=== PATIENT | female | born 1965 | race Caucasian/White ===

== ENCOUNTER 2018-06-29 06:01 | Day surgery (SDC) | payer OTHER ==
[~2018-06-29 06:01] MED LIST: CEFAZOLIN 2 GM/50 ML (PMX) 50 ML IVPB
[2018-06-29] MEDS: SOD CHLORIDE 0.9% 1,000 ML IV (06:54)
[2018-06-29] MEDS ORDERED: METOCLOPRAMIDE 10 MG INJ (07:00)
[2018-06-29] MEDS ORDERED: DEXAMETHASONE 4 MG/ML 1 ML INJ (07:00)
[2018-06-29] MEDS ORDERED: CEFAZOLIN 1 GM INJ (07:00)
[2018-06-29] MEDS ORDERED: FENTAnyl 50 MCG/ML VIAL (07:21)
[2018-06-29] MEDS ORDERED: MIDAZOLAM 1 MG/ML 2 ML INJ (07:22)
[2018-06-29] MEDS ORDERED: PROPOFOL 20 ML (07:23)
[2018-06-29] MEDS ORDERED: ONDANSETRON 4 MG INJ (07:23)
[2018-06-29] MEDS ORDERED: LIDOCAINE 2% (SDV) 5 ML INJ (07:24)
[2018-06-29] MEDS ORDERED: HYDROmorphONE 1 MG/5 ML IV SYRINGE IV (08:00)
[2018-06-29] MEDS ORDERED: DIPHENHYDRAMINE 50 MG INJ IV (08:00)
[2018-06-29] MEDS ORDERED: FENTAnyl 50 MCG/ML VIAL IV ×2 (08:00)
[2018-06-29] MEDS ORDERED: MEPERIDINE 25 MG INJ IV (08:00)
[2018-06-29] MEDS ORDERED: KETOROLAC 30 MG INJ IV (08:00)
[2018-06-29] MEDS ORDERED: ONDANSETRON 4 MG INJ IV (08:00)
[2018-06-29] MEDS: BUPIVACAINE 0.25% (MPF) 30 ML INJ (08:08)
[2018-06-29] MEDS: HYDROmorphONE 1 MG/5 ML IV SYRINGE IV ×2 (08:36→08:42)
[2018-06-29] MEDS: HYDROCODONE/APAP (5/325) TAB PO (09:17)
== END 2018-06-29 11:37 | disposition home or self-care (01) ==
LOC: SDS 06:01
DX: D17.1 Benign lipomatous neoplasm of skin and subcutaneous tissue of trunk (principal)
CPT/HCPCS: 14301; 84703; 88307